=== PATIENT | female | born 1970 | race Caucasian/White ===

== ENCOUNTER 2020-06-06 10:37 | Outpatient (REF) | payer OTHER, MEDICAID, SELFPAY ==
[2020-06-06 11:15] LABS: COVID-19 Test Negative (Negative); IDNOW Serial# 55D5AD1C
== END 2020-06-06 10:38 | disposition home or self-care (01) ==
LOC: HO.LAB 10:37
PROVIDERS: Visit Provider Internal Medicine
DX: Z20.828 Contact with and (suspected) exposure to other viral communicable diseases (principal)
CPT/HCPCS: 87635; C9803

== ENCOUNTER 2020-06-27 08:30 | Outpatient (REF) | payer OTHER, SELFPAY ==
[2020-06-27 08:50] LABS: COVID-19 Test Negative (Negative); IDNOW Serial# 55D5AD1C
== END 2020-06-27 08:31 | disposition home or self-care (01) ==
LOC: HO.EMPCOV 08:30
PROVIDERS: Visit Provider Internal Medicine
DX: Z20.828 Contact with and (suspected) exposure to other viral communicable diseases (principal)
CPT/HCPCS: 87635; C9803

== ENCOUNTER 2020-07-01 08:20 | Outpatient (REF) | payer OTHER, SELFPAY ==
[2020-07-01 08:45] LABS: COVID-19 Test Negative (Negative); IDNOW Serial# 55D5AD1C
== END 2020-07-01 08:21 | disposition home or self-care (01) ==
LOC: HO.LAB 08:20
PROVIDERS: Visit Provider Internal Medicine
DX: Z20.828 Contact with and (suspected) exposure to other viral communicable diseases (principal)
CPT/HCPCS: 87635; C9803

== ENCOUNTER 2020-07-16 08:42 | Outpatient (REF) | payer OTHER, SELFPAY ==
[2020-07-16 09:12] LABS: COVID-19 Note A; COVID-19 Test Negative (Negative)
== END 2020-07-16 08:43 | disposition home or self-care (01) ==
LOC: HO.EMPCOV 08:42
PROVIDERS: PCP Hospitalist; Visit Provider Internal Medicine
DX: Z20.828 Contact with and (suspected) exposure to other viral communicable diseases (principal)
CPT/HCPCS: 87635; C9803

== ENCOUNTER 2020-07-22 10:53 | Outpatient (REF) | payer OTHER, SELFPAY ==
[2020-07-22 11:10] LABS: COVID-19 Test Negative (Negative)
== END 2020-07-22 10:54 | disposition home or self-care (01) ==
LOC: HO.LAB 10:53
PROVIDERS: Visit Provider Internal Medicine
DX: Z20.828 Contact with and (suspected) exposure to other viral communicable diseases (principal)
CPT/HCPCS: 87635; C9803